=== PATIENT | female | born 1995 | race Caucasian/White ===

== ENCOUNTER → 2017-11-23 12:06 | Outpatient (CLI) | payer SELFPAY ==
[2017-11-23 14:13] LABS: hCG Titer Quant., Serum 251 mIU/mL (<9 non-preg)
== END ==
PROVIDERS: Visit Provider Obstetrics & Gynecology
DX: O20.0 Threatened abortion (principal); Z3A.00 Weeks of gestation of pregnancy not specified
CPT/HCPCS: 36415; 84702; 86850; 86900

== ENCOUNTER → 2017-11-25 11:36 | Outpatient (CLI) | payer SELFPAY ==
[2017-11-25 12:27] LABS: hCG Titer Quant., Serum 461 mIU/mL (<9 non-preg)
[2017-11-25 12:38] LABS: Progesterone Level 6.41 ng/mL (See Comment)
== END ==
PROVIDERS: Visit Provider Obstetrics & Gynecology
DX: N92.6 Irregular menstruation, unspecified (principal)
CPT/HCPCS: 36415; 84144; 84702

== ENCOUNTER → 2017-12-01 13:48 | Outpatient (CLI) | payer SELFPAY ==
[2017-12-01 15:38] LABS: hCG Titer Quant., Serum 203 mIU/mL (<9 non-preg)
== END ==
PROVIDERS: Visit Provider Obstetrics & Gynecology
DX: O03.9 Complete or unspecified spontaneous abortion without complication (principal)
CPT/HCPCS: 36415; 84702; 86850; 86900

== ENCOUNTER → 2018-03-31 12:33 | Outpatient (CLI) | payer SELFPAY ==
[2018-03-31 13:52] LABS: hCG Titer Quant., Serum 50566 mIU/mL (<9 non-preg)
[2018-03-31 17:00] LABS: Chlamydia Trachomatis by PCR Negative (Negative); Neisserai gonorrhoeae by PCR Negative (Negative); Probe Check PASS; Sample Adequacy Control PASS; Specimen Processing Control PASS
== END ==
PROVIDERS: Visit Provider Obstetrics & Gynecology
DX: O20.0 Threatened abortion (principal); O09.91 Supervision of high risk pregnancy, unspecified, first trimester; Z3A.00 Weeks of gestation of pregnancy not specified
CPT/HCPCS: 36415; 84702; 87086; 87088; 87491; 87591

== ENCOUNTER → 2018-04-02 12:44 | Outpatient (CLI) | payer SELFPAY | PROVIDERS: Visit Provider Obstetrics & Gynecology | DX: O20.0 Threatened abortion (principal); Z3A.00 Weeks of gestation of pregnancy not specified | CPT/HCPCS: 36415; 84702 ==

== ENCOUNTER → 2018-04-05 12:25 | Outpatient (CLI) | payer SELFPAY ==
--- NOTE | 2018-04-05 12:27 | US_ITS ---
STUDY: FIRST TRIMESTER OBSTETRICAL ULTRASOUND REASON FOR EXAM: Female, 22 years old. Threatened . LMP: February 01, 2018. TECHNIQUE: Transvaginal PRIOR ULTRASOUND: None. FINDINGS: There is visualization of a single gestational sac in a normal intrauterine position. The mean sac diameter (MSD) measures 2.44 cm, indicating an estimated gestational age (EGA) of 7 weeks, 4 days. The shape of the gestational sac is elongated. There is no demonstrated yolk sac. The placenta is non-visualized. There is no demonstrated embryo ( pole). The estimated gestation age (EGA) by LMP is 9 weeks, 0 days. The estimated date of delivery (PATRICIA) by LMP is November 08, 2018. The estimated gestation age (EGA) by US is 7 weeks, 4 days. The estimated date of delivery (PATRICIA) by US is November 18, 2018. The uterus measures 11.1 cm x 7.5 cm x 6.3 cm. There is no demonstrated uterine fibroid. The cervix is closed. The right ovary measures 4.0 cm x 1.3 cm x 1.4 cm. There is no right ovarian cyst. There is no visualized right adnexal mass or complex lesion. The left ovary measures 4.2 cm x 2.2 cm x 2.3 cm. There is evidence of a 1.7 cm x 1.7 cm x 1.5 cm corpus scoliosis. There is no visualized left adnexal mass or complex lesion. There is no fluid in the cul de sac. US/Transvaginal w/Preg US IMPRESSION: A deformed intrauterine gestational sac is seen. No pole or yolk sac is present. Correlation with serial beta hCG recommended. Electronically Signed: Jovi Valdez MD at 13:15 EDT Tel [phone], Service support ,
== END ==
PROVIDERS: Visit Provider Obstetrics & Gynecology
DX: O20.0 Threatened abortion (principal); Z3A.00 Weeks of gestation of pregnancy not specified
CPT/HCPCS: 76817

== ENCOUNTER → 2019-03-02 | Outpatient (CLI) | payer SELFPAY ==
[2019-03-02 14:39] VITALS: BMI 24.6
[2019-03-02 20:33] LABS: Chlamydia Trachomatis by PCR Negative (Negative); Neisserai gonorrhoeae by PCR Negative (Negative); Probe Check PASS; Sample Adequacy Control PASS; Specimen Processing Control PASS
[2019-03-08 16:49] LABS: HPV Reflexed? NOT INDICATED
== END | disposition home or self-care (01) ==
PROVIDERS: Referring Provider Obstetrics & Gynecology; Visit Provider Obstetrics & Gynecology
DX: Z34.90 Encounter for supervision of normal pregnancy, unspecified, unspecified trimester (principal); Z12.4 Encounter for screening for malignant neoplasm of cervix; N96 Recurrent pregnancy loss; Z83.49 Family history of other endocrine, nutritional and metabolic diseases
CPT/HCPCS: 87086; 87088; 87491; 87591; 87624; 88175; G0145

== ENCOUNTER → 2019-04-05 | Outpatient (CLI) | payer SELFPAY ==
[2019-04-05 16:31] VITALS: BMI 24.6
[2019-04-05 17:26] LABS: Absolute Lymphocyte Count 1.81 X10^3/ul (0.83-4.51); Absolute Neutrophil Count 5.2 X10^3/uL (2.0-7.7); Basophil# 0.03 X10^3/uL; Basophil% 0.4 % (0-1); Eosinophils% 1.3 % (0-5); Hematocrit 35.5 % (37-47); Lymphocyte # 1.81 X10^3/ul (4.0); Lymphocyte % 23.1 % (19-41); Mean Corp Hgb Conc 33.8 g/gl (32-36); Mean Corpuscular Hgb 27.1 pg (27.0-32.0); Mean Corpuscular Volume 80.1 fL (81-99); Mean Platelet Vol. 10.2 fl (6.2-12.0); Monocyte% 7.7 % (0-10); Neutrophil # 5.23 X10^3/uL (2.7-7.7); Neutrophil % 66.6 % (47-70); Platelet Count 150 K/mm3 (150-450); RBC Distribution Width SD 40.5 fl (35.1-43.9); Red Blood Count 4.43 M/mm3 (4.2-5.4); White Blood Count 7.8 K/mm3 (4.4-11.0)
[2019-04-05 17:29] LABS: Differential Indicated SCAN CRITERIA MET; POSITIVE COUNT NO; POSITIVE DIFFERENTIAL NO; POSITIVE MORPHOLOGY YES
[2019-04-05 18:10] LABS: Differential Comment SCANNED
[2019-04-05 18:36] LABS: HIV - WCH Non-Reactive (Nonreactive); Rubella IgG > 500.0 IU/mL
[2019-04-07 10:25] LABS: HEPATITIS B SURFACE AG Negative (Negative)
[2019-04-08 02:32] LABS: Rapid Plasmin Reagin (RPR) NONREACTIVE (NONREACTIVE)
== END | disposition home or self-care (01) ==
LOC: LAB 16:34
PROVIDERS: Referring Provider Obstetrics & Gynecology; Visit Provider Obstetrics & Gynecology
DX: Z34.90 Encounter for supervision of normal pregnancy, unspecified, unspecified trimester (principal); N96 Recurrent pregnancy loss; Z83.49 Family history of other endocrine, nutritional and metabolic diseases
CPT/HCPCS: 36415; 85025; 86592; 86703; 86762; 86850; 86900; 87340

== ENCOUNTER → 2019-05-18 | Outpatient (CLI) | payer SELFPAY ==
[2019-04-05 16:31] VITALS: BMI 24.6
[2019-05-11 13:17] VITALS: BMI 24.6
--- NOTE | 2019-05-18 08:22 | US_ITS ---
STUDY: SECOND AND THIRD TRIMESTER OBSTETRICAL ULTRASOUND REASON FOR EXAM: Female, 23 years old. Routine survey. LMP: December 29, 2018 TECHNIQUE: Transabdominal TECHNICAL QUALITY: Adequate. PRIOR ULTRASOUND: None. FINDINGS: There is a single intrauterine fetus. The fetus is in a cephalic presentation. There is demonstrated cardiac activity with a heart rate of 127 bpm. There is a normal amniotic fluid volume. The largest amniotic fluid pocket measures 5.5 cm x 4.8 cm. The amniotic fluid index (DIANA) is within normal limits. The placenta is fundal in location. There are Grade 0 placental changes. The cervix measures 3.4 cm in length. The bilateral adnexal regions are normal. BIOMETRY: BPD: 4.93 cm: 21 weeks, 0 days HC: 17.44 cm: 20 weeks, 0 days AC: 15.25 cm: 20 weeks, 4 days FL: 3.18 cm: 20 weeks, 0 days CI: 85% FL/BPD: 65% FL/HC: FL/AC: 21% HC/AC: 1.14 age by current US: 20 weeks, 3 days. PATRICIA by current US: October 02, 2019. Estimated weight: 339 grams, +/- 50 grams, 57 %. Age by LMP: 20 weeks, 0 days. PATRICIA by LMP: October 05, 2019. ANATOMY: Gender: Cranium: Normal lateral ventricles. Normal choroid plexus. Normal cerebellum. Normal cisterna magna. Normal face, nose and lips. Chest: Normal 4-chamber heart. Abdomen/Pelvis: Normal diaphragm. Normal stomach. Normal abdominal wall. Normal cord insertion. Normal 3 vessel cord. Normal kidneys. Normal bladder. Spine: Normal cervical spine. Normal thoracic spine. Normal lumbar spine. Normal sacrum. Extremities: Normal bilateral upper extremities. Normal bilateral lower extremities. US/OB Anatomy Scan IMPRESSION: Single live intrauterine gestation with a mean gestational age of 20 weeks and 3 days. Electronically Signed: Jovi Valdez, at 16:04 EDT , Service support ,
== END | disposition home or self-care (01) ==
LOC: OPUS 08:19
PROVIDERS: Referring Provider Obstetrics & Gynecology; Visit Provider Obstetrics & Gynecology
DX: Z34.90 Encounter for supervision of normal pregnancy, unspecified, unspecified trimester (principal)
CPT/HCPCS: 76805

== ENCOUNTER → 2019-07-08 09:38 | Outpatient (CLI) | payer SELFPAY ==
[2019-07-06 11:53] VITALS: BMI 24.6
[2019-07-08 11:29] LABS: Absolute Lymphocyte Count 1.78 X10^3/uL (0.83-4.51); Absolute Neutrophil Count 8.1 X10^3/uL (2.0-7.7); Basophil# 0.06 X10^3/uL; Basophil% 0.5 % (0-1); Eosinophil# 0.06 X10^3/uL; Eosinophils% 0.5 % (0-5); Hematocrit 34.6 % (37-47); Hemoglobin 11.3 g/dL (12.0-15.0); Lymphocyte # 1.78 X10^3/ul (4.0); Lymphocyte % 16.1 % (19-41); Mean Corp Hgb Conc 32.7 g/dL (32-36); Mean Corpuscular Hgb 27.4 pg (27.0-32.0); Mean Platelet Vol. 10.6 fl (6.2-12.0); Monocyte# 0.59 X10^3/uL; Monocyte% 5.3 % (0-10); NRBC Flagged by Analyzer 0 % (0-5); Neutrophil # 8.05 X10^3/uL (2.7-7.7); Neutrophil % 72.7 % (47-70); Platelet Count 203 K/mm3 (150-450); RBC Distribution Width CV 13.2 % (11.6-14.6); RBC Distribution Width SD 40.5 fl (35.1-43.9); Red Blood Count 4.12 M/mm3 (4.2-5.4); White Blood Count 11.1 K/mm3 (4.4-11.0)
[2019-07-08 11:54] LABS: Glucose Challenge Gest 1H 50g 136 mg/dL (70-140)
== END ==
PROVIDERS: Referring Provider Nurse Practitioner Women's Health; Visit Provider Nurse Practitioner Women's Health
DX: Z34.90 Encounter for supervision of normal pregnancy, unspecified, unspecified trimester (principal)
CPT/HCPCS: 36415; 82950; 85025

== ENCOUNTER → 2019-07-19 06:45 | Outpatient (CLI) | payer SELFPAY ==
[2019-07-06 11:53] VITALS: BMI 24.6
[2019-07-19 08:24] LABS: Glucose GTT-Gestation. Fasting 96 mg/dL (<105)
[2019-07-19 09:35] LABS: Glucose GTT-Gestational 2 Hr 142 mg/dL (<165)
[2019-07-19 09:37] LABS: Glucose GTT-Gestational 1 Hr 146 mg/dL (<190)
[2019-07-19 11:11] LABS: Glucose GTT-Gestational 3 Hr 111 L (<145)
== END ==
PROVIDERS: Referring Provider Nurse Practitioner Women's Health; Visit Provider Nurse Practitioner Women's Health
DX: R73.09 Other abnormal glucose (principal)
CPT/HCPCS: 36415; 82951; 82952

== ENCOUNTER → 2019-09-07 16:50 | Outpatient (CLI) | payer SELFPAY ==
[2019-09-07 11:43] VITALS: BMI 25.9
== END ==
PROVIDERS: Referring Provider Obstetrics & Gynecology; Visit Provider Obstetrics & Gynecology
DX: Z34.93 Encounter for supervision of normal pregnancy, unspecified, third trimester (principal); Z3A.36 36 weeks gestation of pregnancy
CPT/HCPCS: 87081

== ENCOUNTER 2019-10-09 02:43 | Inpatient (IN) | payer SELFPAY ==
[2019-04-05 16:31] VITALS: BMI 24.6
[2019-10-05 11:48] VITALS: BMI 25.9
[2019-10-09] MEDS: Lactated Ringers 1,000 ML 50 ML IV (03:40)
[2019-10-09] MEDS: Lactated Ringers 500 ML 999 ML IV ×2 (03:45→04:34)
[2019-10-09 03:55] LABS: Absolute Lymphocyte Count 1.92 X10^3/uL (0.83-4.51); Absolute Neutrophil Count 9.7 X10^3/uL (2.0-7.7); Basophil# 0.08 X10^3/uL; Basophil% 0.6 % (0-1); Eosinophil# 0.07 X10^3/uL; Eosinophils% 0.5 % (0-5); Hematocrit 33.3 % (37-47); Hemoglobin 10.6 g/dL (12.0-15.0); Lymphocyte # 1.92 X10^3/ul (4.0); Lymphocyte % 14.2 % (19-41); Mean Corp Hgb Conc 31.8 g/dL (32-36); Mean Corpuscular Hgb 24.6 pg (27.0-32.0); Mean Corpuscular Volume 77.3 fL (81-99); Mean Platelet Vol. 10.9 fl (6.2-12.0); Monocyte# 1.11 X10^3/uL; Monocyte% 8.2 % (0-10); NRBC Flagged by Analyzer 0 % (0-5); Neutrophil # 9.72 X10^3/uL (2.7-7.7); Neutrophil % 72.1 % (47-70); Platelet Count 231 K/mm3 (150-450); RBC Distribution Width CV 14.3 % (11.6-14.6); RBC Distribution Width SD 39.6 fl (35.1-43.9); Red Blood Count 4.31 M/mm3 (4.2-5.4); White Blood Count 13.5 K/mm3 (4.4-11.0)
[2019-10-09 04:03] VITALS: BMI 31.4
--- NOTE | 2019-10-09 04:09 | PCM.HP.OB ---
- Problem List (1) Abnormal glucose tolerance in Status: Acute Comment: Normal 3hr (2) Family history of cystic fibrosis Status: Acute Comment: Joel's sister has 2 children with CF (3) Supervision of normal Status: Acute Qualifiers: Comment: PRR PATRICIA 10/05/19 Spouse Joel (4) History of recurrent miscarriages Status: Acute (5) Status: Acute Qualifiers: Comment: Discussed Carrier, Genetic testing, ntd History Date of Admission: 10/09/19 Final PATRICIA: 10/05/19 Gestational age: 40 Weeks and 4 Days History of this : This is a 24 year-old, at 40 weeks gestational age presents IAL 5 cm dilated. she denies any vb lof admits good fm. she has had regular ctx for the last 24 hours and they just increased in intensity. Medical History: Medical History (Last Reviewed 10/05/19 @ 11:43 by Malgorzata Urbina) No significant medical problems No significant past surgical history Allergies No Known Allergies Allergy (Verified 10/05/19 11:44) Home Medications: Home Medications prenat.vits,lamin,khr-tukx-iiukl 1 tab PO QDAY 03/31/18 Boostrix Tdap 2.5 Lf unit-8 mcg-5 Lf/0.5 mL intramuscular syringe 0.5 ml IM ONCE #1 ml NS 07/06/19 Smoking Status: Never smoker Alcohol: None Number of Fetus(es): 1 NST - FHR Rate Baby A Baseline: 140 Variability:: Moderate Accelerations:: 15 x 15 Decelerations:: Late - occasional NST Reactive:: Yes FHR Category:: Category II Uterine Activity:: q 3-5 History Past Pregnancies: Past Pregnancies previous miscarriage Labs: Mom's Labs & Results 10/09/19 10/09/19 03:33 03:33 WBC 13.5 H RBC 4.31 Hgb 10.6 L Hct 33.3 L MCV 77.3 L MCH 24.6 L MCHC 31.8 L RDW Std Deviation 39.6 RDW Coeff of Siddharth 14.3 Plt Count 231 MPV 10.9 Immature Gran % (Auto) 4.400 H Neut % (Auto) 72.1 H Lymph % (Auto) 14.2 L Trinity % (Auto) 8.2 Eos % (Auto) 0.5 Baso % (Auto) 0.6 Absolute Neuts (auto) 9.7 H Absolute Lymphs (auto) 1.92 Nucleated RBC % 0 Blood Type Pending Antibody Screen Pending Course Did the patient receive Yes care? Labs Blood Type: O RH: POSITIVE RPR/VDRL/Syphilis Nonreactive Rubella status Immune HbSAg Negative Date Done: 04/05/19 Chlamydia Negative Gonorrhea Negative HIV/AIDS Non-Reactive Group B Strep: Negative Current Obstetrical History Gestational Diabetes No Incompetent Cervix No Infertility No IUGR No Macrosomia No Hypertension/Pre-eclampsia No Placenta Previa/Abruption No PTL/PROM No Uterine anomaly No Oligohydramnios No Polyhydramnios No Multiple gestation No Past Medical History Asthma No Diabetes No Hypertension No Heart disease No Mitral valve prolapse No Neurologic/Seizure disorder/ No Migraines Kidney disease No Liver disease No Varicosities No Clotting disorders/Hx of DVT No Thyroid Dysfunction No Other medical diseases No Psychiatric disorders No Major trauma No Abnormal PAP smear No Sleep apnea No Mammogram in the last 2 years No Social History Marital Status: Alleged father Joel Hx Smoking No Smoking Status Never smoker Expected Delivery Method: Spontaneous Vaginal Review of Systems Constitutional: Denies: Fever, Malaise Eyes: Denies: Blurred vision, Vision Change HEENT: Denies: Head Aches, Visual Changes Cardiovascular: Denies: Chest Pain, Palpitations Respiratory: Denies: Cough, Shortness of Breath, Wheezing Gastrointestinal: Denies: Abdominal Pain, Diarrhea, Nausea, Vomiting Genitourinary: Denies: Dysuria, Hematuria Musculoskeletal: Denies: Joint Pain, Muscle pain Skin: Denies: Lesions, Rash Neurological: Denies: Blurred vision, Focal weakness, Headaches Psychiatric: Denies: Anxiety, Depression Endocrine: Denies: Heat/ Cold Intolerance Hematologic/ Lymphatic: Denies: Easy Bruising, Easy Bleeding Physical Exam General: Alert, Cooperative, No apparent distress HEENT: Atraumatic, Normocephalic. Negative for: Thyromegaly, Lymphadenopathy Cardiovascular: Regular rate Lungs: Normal air movement Abdomen: Soft, Non Tender, Gravid Neurological: Deep Tendon Reflexes 2+/4 and Symmetrical, Neuro grossly intact. Negative for: Clonus [employer]CTION [employer]: Normal external genitalia. Negative for: Vulvar lesions Estimated gestational size: Appropriate for gestational size Presentation: Cephalic Assessment/Plan All Active Problems (Last Reviewed 10/05/19 @ 11:43 by Malgorzata Urbina) Abnormal glucose tolerance in (Acute) Family history of cystic fibrosis (Acute) Supervision of normal (Acute) History of recurrent miscarriages (Acute) (Acute) Complete (Resolved) Threatened (Resolved) This is a 24 year-old, at 40 weeks gestational age presents IAL. Patient presents IAL, plan expectant management for , pitocin/AROM mec fluid. Pain management: Plans minimal intervention GBS negative Management of any complications: None I have reviewed the PFSH and made any clinically relevant updates.
[2019-10-09] MEDS: Ondansetron 4 MG/2 ML Vial IV (04:34)
[2019-10-09] MEDS: Oxytocin 30 units/NS 500 ml 30 UNITS/500 ML IV.SOLN 334 UNITS IV (06:25)
--- NOTE | 2019-10-09 06:31 | PCM.OPRPT ---
Problem List (1) Abnormal glucose tolerance in Status: Acute Comment: Normal 3hr (2) Family history of cystic fibrosis Status: Acute Comment: Joel's sister has 2 children with CF (3) Supervision of normal Status: Acute Qualifiers: Comment: PRR PATRICIA 10/05/19 Spouse Joel (4) History of recurrent miscarriages Status: Acute (5) Status: Acute Qualifiers: Comment: Discussed Carrier, Genetic testing, ntd Vaginal Delivery Maternal Presentation: Active Labor ial 5 cm Amniotic Membrane Rupture Type: Artificial Amniotic Fluid Description: Moderate meconium Final PATRICIA: 10/05/19 Gestational age: 40 Weeks and 4 Days Date of Procedure: 10/09/19 Pre-Operative Diagnosis: ial Post-Operative Diagnosis: same Surgery/ Procedure Performed: Spontaneous Vaginal Delivery Type of Anesthesia: None Description of Procedure: Patient began pushing and delivered the head in the MADELYN presentation. The head was delivered atraumatically . The anterior and posterior shoulders delivered without complication followed by the rest of the infant and the was placed on the maternal abdomen. Delayed cord clamping was employed for approximately 60 seconds. Cord was clamped and cut and gentle traction was applied to the cord and the placenta delivered spontaneously immediately following it was noted to be intact with three-vessel cord. The perineum and vagina were inspected and noted to have no laceration. EBL was 250 cc. Patient and infant tolerated delivery well. Presentation: MADELYN Placental Delivery Description: Spontaneous Placenta Disposition: [facility] Cord Entanglement: None Estimated Blood Loss: 250 Infant A gender: Female Episiotomy Description: None Laceration: None Medications given after delivery: IV Pitocin Complications: None Multi Select Codes - Urinary/Genital Urinary/Genital CPT Codes: 26578 Vaginal Delivery [facility]
[2019-10-09] MEDS: Methylergonovine 0.2 MG/ML Ampul IM (08:23)
[2019-10-09 11:35] VITALS: BP 122/73; PULSE 71; RESP 12; TEMP 36.9
[2019-10-09 16:40] VITALS: BP 120/73; PULSE 64; RESP 18; TEMP 36.7
[2019-10-09 20:29] VITALS: BP 112/56; PULSE 89; RESP 16; TEMP 36.7
[2019-10-09] MEDS: Naproxen 250 MG Tablet 500 MG PO (23:48)
[2019-10-10] VITALS: BP 125/72; PULSE 96; RESP 16; TEMP 36.4
[2019-10-10 04:00] VITALS: BP 105/58; PULSE 94; RESP 16; TEMP 36.6
--- NOTE | 2019-10-10 07:40 | PCM.PN.OB ---
Subjective: doing well no complaints pain controlled no CP SOB N V ambulating well tolerating po lochia moderate, going well - Physical Exam Vitals/I&O's: Vital Signs Temp Pulse Resp BP 97.8 F 94 16 105/58 L 10/10/19 04:00 10/10/19 04:00 10/10/19 04:00 10/10/19 04:00 Oxygen Delivery Method Room Air Weight: 171 lb 12.8 oz Body Mass Index (BMI) 31.4 Intake and Output for Last 24 Hours 10/08/19 10/09/19 10/10/19 23:59 23:59 23:59 Intake Total 2570.84 / 2570.84 Output Total 375 / 375 Balance 2195.84 / 2195.84 General: Alert, Oriented x3 Abdomen: Soft, Non Tender, - - FF below U Current Medications Acetaminophen (Tylenol) 1,000 mg PO Q8H PRN PRN PRN Reason: Pain Score 1-3/10 Bisacodyl (Dulcolax) 10 mg RECTAL UD PRN PRN Reason: If no BM Dibucaine (Dibucaine) 1 applic TOPICAL TID PRN PRN; Protocol PRN Reason: Discomfort Hydrocortisone (Hytone) 1 applic TOPICAL TID PRN PRN; Protocol PRN Reason: Discomfort Methylergonovine Maleate (Methergine) 0.2 mg IM X1 PRN PRN Reason: Excess bleeding/uterine atony Last Admin: 10/09/19 08:23 Dose: 0.2 mg Documented by: Naproxen (Naprosyn) 500 mg PO Q8H PRN PRN PRN Reason: Pain Score 1-3/10 Last Admin: 10/09/19 23:48 Dose: 500 mg Documented by: Ondansetron HCl (Zofran) 4 mg IV Q4H PRN PRN PRN Reason: Nausea Oxycodone HCl (Oxyir) 5 - 10 mg PO Q4H PRN PRN PRN Reason: Pain Score 4-10/10 Senna/Docusate Sodium (Senokot-S, Annalisa-Colace) 1 - 2 tablet PO DAILY PRN PRN PRN Reason: Constipation Simethicone (Mylicon) 80 mg PO PCHS PRN PRN Reason: Indigestion/Stomach pain Sodium Chloride () 5 - 15 ml IV UD PRN PRN Reason: SALINE FLUSH Medical Necessity - Tobacco Use Smoking Status: Never smoker Assessment/Plan All Active Problems (Last Reviewed 10/05/19 @ 11:43 by Malgorzata Urbina) Abnormal glucose tolerance in (Acute) Family history of cystic fibrosis (Acute) Supervision of normal (Acute) History of recurrent miscarriages (Acute) (Acute) Complete (Resolved) Threatened (Resolved) s/p PPD #1 1. routine post delivery care 2. breast feeding- support given 3. rh positive 4. rubella immune 5. home today
--- NOTE | 2019-10-10 07:41 | DCINST_ITS ---
Additional Instructions: If you experience any of the following, contact your healthcare provider. * Bleeding that soaks a pad every hour for 2 hours * Fever 100.4 or higher * Unrelieved incision or abdominal pain * Swelling, redness, discharge or bleeding from your incision or episiotomy site * Your incision begins to separate * Problems urinating (including inability to urinate or burning while urinating). * Visual changes * Severe headache * Flu-like symptoms * Pain or redness in one of both of your breasts * Pain, warmth, tenderness or swelling in your legs, especially the calf area * Frequent nausea and vomiting * Symptoms of depression or anxiety If you experience any of the following, call 911 or go to the nearest Emergency Room. * Chest pain * Problems breathing * Seizure activity * Partial or complete paralysis of a body part, slurred speech, weakness or drooping of the face, or a sudden inability to walk or hold your balance Allergies/Adverse Reactions: Allergies No Known Allergies Allergy (Verified 10/05/19 11:44) Medications to take at Discharge prenat.vits,lamin,[id number] 1 tab PO QDAY 03/31/18 Boostrix Tdap 2.5 Lf unit-8 mcg-5 Lf/0.5 mL intramuscular syringe 0.5 ml IM ONCE #1 ml NS 07/06/19 Primary Care Physician: Care Physician,No Primary [Primary Care Provider] - Test Results: Test results from this visit will be discussed in further detail at your follow- up appointment, if applicable.
--- NOTE | 2019-10-10 07:41 | PCM.DCVAG ---
Additional Instructions: If you experience any of the following, contact your healthcare provider. Bleeding that soaks a pad every hour for 2 hours Fever 100.4 or higher Unrelieved incision or abdominal pain Swelling, redness, discharge or bleeding from your incision or episiotomy site Your incision begins to separate Problems urinating (including inability to urinate or burning while urinating). Visual changes Severe headache Flu-like symptoms Pain or redness in one of both of your breasts Pain, warmth, tenderness or swelling in your legs, especially the calf area Frequent nausea and vomiting Symptoms of depression or anxiety If you experience any of the following, call 911 or go to the nearest Emergency Room. Chest pain Problems breathing Seizure activity Partial or complete paralysis of a body part, slurred speech, weakness or drooping of the face, or a sudden inability to walk or hold your balance Allergies/Adverse Reactions: Allergies No Known Allergies Allergy (Verified 10/05/19 11:44) Medications to take at Discharge prenat.vits,lamin,[id number]-[id number] 1 tab PO QDAY 03/31/18 Boostrix Tdap 2.5 Lf unit-8 mcg-5 Lf/0.5 mL intramuscular syringe 0.5 ml IM ONCE #1 ml NS 07/06/19 Primary Care Physician: Care Physician,No Primary [Primary Care Provider] - Test Results: Test results from this visit will be discussed in further detail at your follow-up appointment, if applicable.
[2019-10-10 08:00] VITALS: BP 116/73; PULSE 89; RESP 16; TEMP 36.2
== END 2019-10-10 10:50 | disposition home or self-care (01) | DRG 807 ==
PROVIDERS: Admitting Provider Obstetrics & Gynecology; Referring Provider Obstetrics & Gynecology; Visit Provider Obstetrics & Gynecology
DX: O48.0 Post-term pregnancy (principal); Z37.0 Single live birth; Z3A.40 40 weeks gestation of pregnancy; O77.0 Labor and delivery complicated by meconium in amniotic fluid
CPT/HCPCS: 59025; 59050; 85025; 86850; 86900; 86901; 99218; J7120; G0378; J2405